=== PATIENT | male | born 1980 | race Caucasian/White ===

== ENCOUNTER 2024-04-04 09:24 | Emergency (ER) | payer MEDICAID ==
[~2024-04-04] VITALS: Ht 170.2 cm; Wt 68.0 kg
[2024-04-04 09:28] VITALS: O2SAT 99
[2024-04-04 10:38] LABS: BASOPHILS % 0.4 % (0.0-2.0); EOSINOPHILS % 0.6 % (0.0-5.0); HEMATOCRIT. 42.5 % (42.0-52.0); HEMOGLOBIN. 14.5 g/dL (14.0-18.0); LYMPHOCYTES % 12.7 % (20.0-50.0); MEAN CORPUSCULAR HEMOGLOBIN 31.6 pg (28.0-32.0); MEAN CORPUSCULAR HGB CONC 34.1 g/dL (31.0-37.0); MEAN CORPUSCULAR VOLUME 92.8 fL (80.0-94.0); MEAN PLATELET VOLUME 8.4 fl (7.4-10.4); MONOCYTES % 5.9 % (2.0-8.0); NEUTROPHILS % 80.4 % (40.0-76.0); PLATELET 211 x1000/uL (130-400); RED BLOOD CELL COUNT 4.58 mill/uL (4.7-6.1); RED CELL DISTRIBUTION WIDTH 13.5 % (11.6-14.6); WHITE BLOOD COUNT 10.5 x1000/uL (4.5-11.0)
[2024-04-04 10:46] LABS: CHLORIDE 102 mEq/L (98-107); POTASSIUM 4.8 mEq/L (3.5-5.1); SODIUM 139 mEq/L (136-145)
[2024-04-04 10:47] LABS: CALCIUM 9.3 mg/dL (8.7-10.4); CARBON DIOXIDE 33 mEq/L (21-32)
[2024-04-04 10:52] LABS: CREATININE 0.8 mg/dL (0.6-1.3); GLUCOSE 119 mg/dL (70-105); UREA NITROGEN BLOOD 12 mg/dL (9-23)
[2024-04-04 11:02] LABS: TROPONIN I HIGH SENSITIVITY < 4 ng/L (3.0-53)
[2024-04-04] MEDS: KETOROLAC 15MG/ML VIAL IM ONE (13:49)
[2024-04-04 13:50] VITALS: BP 138/86; PULSE 75; RESP 16; TEMP 98.8
== END 2024-04-04 14:01 | disposition home or self-care (01) ==
LOC: ER 10:28
DX: R55 Syncope and collapse (principal); E11.9 Type 2 diabetes mellitus without complications; F20.9 Schizophrenia, unspecified
CPT/HCPCS: 99285; 70450; 71045; 80048; 85025; 84484; 36415; 93005; 96372; J1885